=== PATIENT | female | born 1990 | race Caucasian/White ===

== ENCOUNTER 2021-09-12 10:40 | Outpatient (CLI) | payer MEDICAID, SELFPAY | END 2021-09-12 23:59 | disposition short-term general hospital (02) | PROVIDERS: Referring Provider Physician Assistant; Visit Provider Physician Assistant | DX: Z11.52 Encounter for screening for COVID-19 (principal) | CPT/HCPCS: 87635; U0003; U0005 ==

== ENCOUNTER 2021-12-11 20:02 | Emergency (ER) | payer MEDICAID, SELFPAY ==
[2021-12-11 20:03] VITALS: BP 142/86; PULSE 117; RESP 14; TEMP 36.8; BMI 49.7
--- NOTE | 2021-12-11 21:09 | EKG12_ITS ---
Test Reason : CP Blood Pressure : / mmHG Vent. Rate : 096 BPM Atrial Rate : 096 BPM P-R Int : 154 ms QRS Dur : 080 ms QT Int : 368 ms P-R-T Axes : 038 069 048 degrees QTc Int : 464 ms Normal sinus rhythm Normal ECG Confirmed by CASSY HINTON, DALE ([id number]), deputy editor in chief RODNEY PIKE ([id number]) on 12/13/2021 12:52:13 PM Referred By: PL Confirmed By:DALE MADERA MD
--- NOTE | 2021-12-11 21:13 | EDS_ITS ---
HPI History of Present Illness Chief Complaint: Chest Pain Detail of Chief Complaint: Fever, cough, congestion Informant: patient Onset/Context/Timing Onset: Days (2 days) Context: Gradual Onset Current Severity: Moderate Maximum Severity: Moderate Narrative Narrative: Patient presents secondary to generalized body aches with fever up to 103 at home over the past 2 to 3 days. She has cough and sneezing with congestion. She is a hoarse voice. She reports bilateral rib pain and feeling short of breath. [facility] Medical History (Updated 12/11/21 @ 23:[address] Dee Raygoza MD) Bilateral kidney stones Medical History no medical history no medical history Home Medications fluoxetine 10 mg capsule 10 mg PO DAILY 11/06/21 [History Last Taken Unknown] Allergy/AdvReac Type Severity Reaction Status Date / Time No Known Allergies Allergy Verified 12/11/21 20:03 Surgical History History of kidney surgery Social History Smoking Status: Never smoker ROS ROS ED Constitutional Constitutional ED: Reports fever(s); Denies chills Eyes Eyes: Denies change in vision ENT ENT ED: Reports rhinorrhea and sore throat Cardiovascular Cardiovascular: Reports chest pain Respiratory/Chest Respiratory/Chest: Reports cough and dyspnea; Denies sputum Gastrointestinal Gastrointestinal: Reports nausea and vomiting; Denies abdominal pain or diarrhea Genitourinary Genitourinary ED: Denies dysuria Musculoskeletal Musculoskeletal: Reports myalgias; Denies back pain Integumentary Denies rash Neurologic Neurologic: Denies headache(s) Allergic/Immunologic Allergic/Immunologic ED: Denies urticaria EXAM Physical Exam Const Vital Signs: 12/11/21 20:03 12/11/21 23:13 Temperature 98.2 F Temperature Source Temporal Pulse Rate 117 H 79 Respiratory Rate 14 16 Blood Pressure 142/86 H Blood Pressure Mean 104 Pulse Ox 96 Oxygen Delivery Method Room Air Positive well nourished and well developed General Appearance ED: well developed HEENT HEENT Narrative: Mild erythema left TM. Posterior pharynx exam unremarkable. Eyes PERRL and EOMs intact bilaterally Neck supple Chest Wall inspection of chest normal and palpation of chest normal Resp normal respiratory effort and clear to auscultation bilaterally Cardio regular rate and regular rhythm GI normal to inspection, nondistended, normoactive bowel sounds and non-tender Palpation: soft Extremity normal to inspection Neuro oriented x3 Sensorium / Orientation: alert Psych mental status grossly normal Skin no rashes or lesions noted MDM MDM MDM Narrative Medical decision making narrative: Patient given IV fluids and Toradol. Lab work, chest x-ray, EKG obtained. Swabs for strep, COVID, influenza obtained. Lab Data Attestation: I reviewed the patient's lab results. Labs: Laboratory Results - last 24 hr 12/11/21 12/11/21 12/11/21 21:30 21:30 21:30 WBC 6.1 RBC 4.85 Hgb 14.2 Hct 43.0 MCV 88.7 MCH 29.3 MCHC 33.0 RDW Std Deviation 42.0 RDW Coeff of Otis 12.9 Plt Count 267 MPV 9.7 Immature Gran % (Auto) 0.200 Neut % (Auto) 56.4 Lymph % (Auto) 27.7 Dubois % (Auto) 11.3 H Eos % (Auto) 3.9 Baso % (Auto) 0.5 Absolute Neuts (auto) 3.5 Absolute Lymphs (auto) 1.70 Nucleated RBC % 0 D-Dimer Quant (PE/DVT) 0.44 Sodium 139 Potassium 4.5 Chloride 107 Carbon Dioxide 27.0 Anion Gap 5 BUN 10 Creatinine 0.74 Estim Creat Clear Calc 87.12 Est GFR (MDRD) Af Amer 118 Est GFR (MDRD) Non-Af 97 BUN/Creatinine Ratio 13.5 Glucose 91 Calcium 8.7 Serum , Qual 12/11/21 21:30 WBC RBC Hgb Hct MCV MCH MCHC RDW Std Deviation RDW Coeff of Otis Plt Count MPV Immature Gran % (Auto) Neut % (Auto) Lymph % (Auto) Dub[place] % (Auto) Eos % (Auto) Baso % (Auto) Absolute Neuts (auto) Absolute Lymphs (auto) Nucleated RBC % D-Dimer Quant (PE/DVT) Sodium Potassium Chloride Carbon Dioxide Anion Gap BUN Creatinine Estim Creat Clear Calc Est GFR (MDRD) Af Amer Est GFR (MDRD) Non-Af BUN/Creatinine Ratio Glucose Calcium Serum , Qual NEGATIVE Radiography Chest X-Ray - ED: 1 View, Read by ED Physician and No Infiltrates Diagnostic Testing: Clinical Impression(s) from Imaging Studies Chest X-Ray 12/11/21 21:16 IMPRESSION: No acute radiographic abnormalities. Electronically Signed: Frederick Stern MD at 21:29 EDT , EKG Initial EKG: Attestation: I personally reviewed and interpreted this EKG as follows: Interpretation: Sinus Rhythm (Sinus at 96 with no acute ischemia.) Treatment and Re-Evaluation Narrative: Repeat evaluation patient does feel improved. EKG reveals no ischemia. Lab work unremarkable including a negative D-dimer. Chest x-ray reveals no infiltrate. Rapid strep and Covid are negative. Patient is positive for influenza A. Test results discussed with her. She wishes to just continue with supportive care. Return instructions are provided. Discharge Plan Triage Chief Complaint: Chest Pain ED Provider: Dee Raygoza Dx/Rx/DC Orders Clinical Impression: Influenza A Instructions: ED Influenza (Adult) Prescriptions: No Action fluoxetine [Prozac] 10 mg capsule 10 mg PO DAILY RF: 0 Primary Care Provider: Annelise Angeles Referrals: Annelise Angeles [Primary Care Provider] - 1-2 Weeks Disposition Disposition: Home, Self Care
--- NOTE | 2021-12-11 21:16 | RAD_ITS ---
INDICATION: cough EXAMINATION/TECHNIQUE: X-RAY - XR Chest 1 View COMPARISON: None. FINDINGS: The lungs are clear. The cardiomediastinal silhouette is unremarkable. No pleural effusion or pneumothorax. No acute osseous abnormalities. RAD/Chest 1 View (Portable) IMPRESSION: No acute radiographic abnormalities. Electronically Signed: Frederick tSern MD at 21:29 EDT ,
[2021-12-11] MEDS: 0.9% Normal Saline 1,000 ML 1000 ML IV (21:28)
[2021-12-11] MEDS: Ketorolac 30 MG/ML Syringe IV (21:28)
[2021-12-11 21:45] LABS: Absolute Neutrophil Count 3.5 X10^3/uL (2.0-7.7); Basophil# 0.03 X10^3/uL; Basophil% 0.5 % (0-1); Eosinophil# 0.24 X10^3/uL; Eosinophils% 3.9 % (0-5); Hemoglobin 14.2 g/dL (12.0-15.0); Lymphocyte % 27.7 % (19-41); Mean Corpuscular Hgb 29.3 pg (27.0-32.0); Mean Corpuscular Volume 88.7 fL (81-99); Mean Platelet Vol. 9.7 fl (6.2-12.0); Monocyte# 0.69 X10^3/uL; Monocyte% 11.3 % (0-10); NRBC Flagged by Analyzer 0 % (0-5); Neutrophil # 3.46 X10^3/uL (2.7-7.7); Neutrophil % 56.4 % (47-70); Platelet Count 267 K/mm3 (150-450); RBC Distribution Width CV 12.9 % (11.6-14.6); Red Blood Count 4.85 M/mm3 (4.2-5.4); White Blood Count 6.1 K/mm3 (4.4-11.0)
[2021-12-11 21:53] LABS: Internal QC Validated? YES +Cl - CLEAR BKGD; Pregnancy, Serum, hCG Quali. NEGATIVE Negative
[2021-12-11 21:57] LABS: D-Dimer Quantitative (DVT/PE) 0.44 FEU/ug/m (0.27-0.49)
[2021-12-11 22:11] LABS: Anion Gap 5 (5-15); BUN 10 mg/dL (7-18); BUN/Creat Ratio 13.5 RATIO (10-20); Calcium,Total 8.7 mg/dL (8.5-10.1); Chloride 107 mmol/L (98-107); Creatinine, Serum 0.74 mg/dL (0.55-1.02); EST Glomerular Filtration Rate 97 mL/min (>60); Est Glom Filt Rate - Afr Amer 118 mL/min (>60); Estimated Creatinine Clearance 87.12 ml/min; Glucose 91 mg/dL (74-106); Potassium 4.5 mmol/L (3.5-5.1); Sodium Level 139 mmol/L (136-145)
[2021-12-11 23:13] VITALS: PULSE 79; RESP 16; O2SAT 96
[2021-12-11 23:30] VITALS: PULSE 78; RESP 18; O2SAT 96
== END 2021-12-11 23:34 | disposition home or self-care (01) ==
PROVIDERS: Emergency Provider Emergency Medicine; PCP Family Medicine; Visit Provider Emergency Medicine
DX: J10.1 Influenza due to other identified influenza virus with other respiratory manifestations (principal)
CPT/HCPCS: 71045; 80048; 84703; 85025; 85379; 87428; 87880; 93005; 96361; 96374; 99284; J7030

== ENCOUNTER 2024-02-13 19:57 | Emergency (ER) | payer MEDICAID, SELFPAY ==
[2024-02-13 19:57] VITALS: BP 164/105; PULSE 111; RESP 18; TEMP 36.6; O2SAT 100; BMI 50.9
--- NOTE | 2024-02-13 20:17 | US_ITS ---
STUDY: FIRST TRIMESTER OBSTETRICAL ULTRASOUND REASON FOR EXAM: Female, 33 years old pain LMP: Unknown TECHNIQUE: Transabdominal TECHNICAL QUALITY: Adequate. PRIOR ULTRASOUND: None. FINDINGS: There is visualization of a single gestational sac in a normal intrauterine position. The mean sac diameter (MSD) measures 6.8 cm, indicating an estimated gestational age (EGA) of 13 weeks, 2 days. The gestational sac shape is within normal limits. There is a visualized yolk sac. The yolk sac measures 0.5 cm. The placenta is non-visualized. There is visualization of a live embryo. The crown-rump length (CRL) measures 6.8 cm, indicating an estimated gestational age (EGA) of 13 weeks, 0 days. There is demonstrated cardiac activity with a heart rate of 156 bpm. The estimated gestation age (EGA) by LMP is 13 weeks, 1 days. The estimated date of delivery (BAUTISTA) by LMP is August 19, 2024. The estimated gestation age (EGA) by US is 13 weeks, 1 days. The estimated date of delivery (BAUTISTA) by US is August 19, 2024. There is no fluid in the cul de sac. US/Init OB < 14Wks US IMPRESSION: 13 week 1 day intrauterine Electronically Signed: Brijesh Marmolejo MD at 21:58 EDT ,
--- NOTE | 2024-02-13 20:19 | ED.VIS.FEGU ---
HPI HPI - Female History of Present Illness Chief Complaint: Informant: patient Pain Pain: Positive for Pelvic Pain Onset: Today Narrative Narrative: Patient presents secondary to abdominal pain. She is currently 13 weeks with her fourth . She had 2 successful pregnancies and 1 blighted ovum previously. She states she was woken from sleep around 6 AM this morning with abdominal cramping and pain. It is progressed throughout the day. She has had nausea and dry heaves. She also complains of a headache that was not relieved with Tylenol. She denies urinary symptoms. She denies any vaginal bleeding. PFSH PFS Medical History Acute sinusitis, unspecified Bilateral kidney stones Home Medications ?Medication ?Instructions ?Recorded ?Last Taken ?Type fluoxetine 10 mg capsule (Prozac) 10 mg PO DAILY 11/06/21 Unknown History cephalexin 500 mg capsule 500 mg PO Q12 #14 CAPSULES 02/13/24 Unknown Rx ondansetron 4 mg disintegrating 4 mg PO Q8H PRN PRN Nausea #10 tabs 02/13/24 Unknown Rx tablet oxycodone 5 mg tablet 5 mg PO Q6H PRN pain 3 days #12 02/13/24 Unknown Rx tabs Allergy/AdvReac Type Severity Reaction Status Date / Time No Known Allergies Allergy Verified 02/13/24 19:59 Surgical History History of kidney surgery Social History Smoking Status: Never smoker ROS ROS ED Constitutional Constitutional ED: Denies chills or fever(s) Eyes Eyes: Denies discharge from eye(s) ENT ENT ED: Denies discharge from eye(s), rhinorrhea or sore throat Cardiovascular Cardiovascular: Denies chest pain Respiratory/Chest Respiratory/Chest: Denies cough or dyspnea Gastrointestinal Gastrointestinal: Reports abdominal pain, nausea and vomiting; Denies diarrhea Genitourinary Genitourinary ED: Denies dysuria or urinary frequency Musculoskeletal Musculoskeletal: Denies back pain or extremity pain Integumentary Denies Abrasions or rash Neurologic Neurologic: Denies headache(s) or weakness Psychiatric Psychiatric: Denies anxiety or depression Allergic/Immunologic Allergic/Immunologic ED: Denies lip swelling or urticaria EXAM Physical Exam Const Vital Signs: 02/13/24 19:57 02/13/24 21:57 Temperature 98 F 97.3 F L Temperature Source Temporal Temporal Pulse Rate 111 H 78 Respiratory Rate 18 18 Blood Pressure 164/105 H 126/67 H Blood Pressure Mean 124 86 Pulse Ox 100 99 Oxygen Delivery Method Room Air Room Air Positive well nourished and well developed General Appearance ED: well developed HEENT Reports moist mucous membranes Eyes EOMs intact bilaterally Chest Wall inspection of chest normal and palpation of chest normal Resp normal respiratory effort and clear to auscultation bilaterally Cardio regular rate and regular rhythm GI soft to palpation GI Narrative: Mild diffuse lower abdominal tenderness. No guarding or rebound. Extremity normal to inspection Neuro oriented x3 and no sensory deficits noted Motor Exam: strength 5/5 throughout Psych mental status grossly normal Skin no rashes or lesions noted MDM MDM MDM Narrative Medical decision making narrative: IV line established. Patient given IV fluids along with Reglan and Benadryl. Labwork obtained to evaluate for leukocytosis, anemia, and electrolyte derangement. Urinalysis obtained to evaluate for infection/hematuria. Pelvic ultrasound obtained to evaluate fetus. History & Record Review Discussion w/independent historian: Patient Lab Data Attestation: I reviewed the patient's lab results. Labs: Laboratory Results - last 24 hr 02/13/24 02/13/24 20:32 20:55 WBC 12.2 H RBC 4.62 Hgb 13.7 Hct 40.8 MCV 88.3 MCH 29.7 MCHC 33.6 RDW Std Deviation 41.3 RDW Coeff of Otis 12.9 Plt Count 272 MPV 9.5 Immature Gran % (Auto) 0.300 Neut % (Auto) 59.4 Lymph % (Auto) 30.9 [place] % (Auto) 6.2 Eos % (Auto) 2.9 Baso % (Auto) 0.3 Absolute Neuts (auto) 7.3 Absolute Lymphs (auto) 3.78 Nucleated RBC % 0 Sodium 137 Potassium 3.4 L Chloride 105 Carbon Dioxide 24.0 Anion Gap 8 BUN 9 Creatinine 0.57 Estim Creat Clear Calc 178.66 Est GFR (MDRD) Af Amer 156 Est GFR (MDRD) Non-Af 129 BUN/Creatinine Ratio 15.7 Glucose 100 Calcium 9.3 Total Bilirubin 0.30 Direct Bilirubin 0.09 AST 12 L ALT 12 L Alkaline Phosphatase 61 Total Protein 6.9 Albumin 2.8 L Globulin 4.1 Urine Color Yellow Urine Clarity Cloudy Urine pH 7.0 Ur Specific [place] 1.010 Urine Protein 15 H Urine Glucose (UA) Normal Urine Ketones Negative Urine Occult Blood 250 H Urine Nitrite Negative Urine Bilirubin Negative Urine Urobilinogen Normal Ur Leukocyte Esterase 100 H Urine RBC > 100 SEEN Urine WBC 0-5 SEEN Ur Squamous Epith Cells 0-5 SEEN Urine Bacteria 1+ Urine Mucus 1+ Radiography Diagnostic Testing: Clinical Impression(s) from Imaging Studies Obstetrics Ultrasound 02/13/24 20:17 IMPRESSION: 13 week 1 day intrauterine Electronically Signed: Brijesh Marmolejo MD at 21:58 EDT , Treatment and Re-Evaluation Narrative: CBC has a white count of 12.2 with normal differential. Hemoglobin is 13.7. Chemistry studies significant only for slightly low potassium at 3.4. LFTs are normal. Urinalysis reveals greater than 100 red cells with 1+ bacteria. Pelvic ultrasound reveals 13-week 1 day intrauterine . Heart rate is noted at 156. On repeat evaluation patient does report some improvement in her headache. Blood pressures improved to 126/67. She does have a history of kidney stones. She states in the past she is always had to have surgery for them and is always had a lot of back pain. With the degree of red blood cells in her urine I suspect she is likely passing a small kidney stone and has pain in the anterior groin area. I will write her prescription for oxycodone for pain. She can use Tylenol on a regular basis with oxycodone for breakthrough pain. I will also write her for some Zofran as well as Keflex given the bacteria in her urine. Patient is comfortable to plan. Return instructions were provided. Discharge Plan Triage Chief Complaint: ED Provider: Dee Raygoza Dx/Rx/DC Orders Clinical Impression: Kidney stone, Bacteria in urine Instructions: ED Cystitis Female Adult, ED Kidney Stone with Pain Prescriptions: New oxycodone 5 mg tablet 5 mg PO Q6H PRN (Reason: pain) 3 Days Qty: 12 0RF ondansetron 4 mg tablet,disintegrating 4 mg PO Q8H PRN PRN (Reason: Nausea) Qty: 10 0RF cephalexin 500 mg capsule 500 mg PO Q12 Qty: 14 0RF No Action fluoxetine [Prozac] 10 mg capsule 10 mg PO DAILY Primary Care Provider: Annelise Angeles Referrals: Naye Olivier MD [Med Staff - Active Staff] - 3-5 Days if not improving Valerie Gale MD [Med Staff - Active Staff] - 1 Week Annelise Angeles [Primary Care Provider] - Print Language: Telugu Disposition Disposition: Home, Self Care
[2024-02-13] MEDS: DiphenhydrAMINE 50 MG/ML Syringe 12.5 MG IV (20:47)
[2024-02-13] MEDS: Metoclopramide 10 MG/2 ML Vial IV (20:47)
[2024-02-13] MEDS: 0.9% Normal Saline (500mL Bag) 500 ML 1000 ML IV (20:48)
[2024-02-13 20:50] LABS: Absolute Lymphocyte Count 3.78 X10^3/uL (0.83-4.51); Absolute Neutrophil Count 7.3 X10^3/uL (2.0-7.7); Basophil# 0.04 X10^3/uL; Basophil% 0.3 % (0-1); Eosinophil# 0.35 X10^3/uL; Eosinophils% 2.9 % (0-5); Hematocrit 40.8 % (37-47); Hemoglobin 13.7 g/dL (12.0-15.0); Lymphocyte # 3.78 X10^3/ul (0.83-4.51); Lymphocyte % 30.9 % (19-41); Mean Corp Hgb Conc 33.6 g/dL (32-36); Mean Corpuscular Hgb 29.7 pg (27.0-32.0); Mean Corpuscular Volume 88.3 fL (81-99); Mean Platelet Vol. 9.5 fl (6.2-12.0); Monocyte# 0.76 X10^3/uL; Monocyte% 6.2 % (0-10); NRBC Flagged by Analyzer 0 % (0-5); Neutrophil # 7.26 X10^3/uL (2.7-7.7); Neutrophil % 59.4 % (47-70); Platelet Count 272 K/mm3 (150-450); RBC Distribution Width CV 12.9 % (11.6-14.6); RBC Distribution Width SD 41.3 fl (35.1-43.9); Red Blood Count 4.62 M/mm3 (4.2-5.4); White Blood Count 12.2 K/mm3 (4.4-11.0)
[2024-02-13 21:02] LABS: AST(SGOT) 12 U/L (15-37); Alanine Aminotransfer ALT/SGPT 12 U/L (13-56); Albumin, Serum 2.8 g/dL (3.2-5.0); Alkaline Phosphatase 61 U/L (45-117); Anion Gap 8 (5-15); BUN 9 mg/dL (7-18); BUN/Creat Ratio 15.7 RATIO (10-20); Bilirubin, Direct 0.09 mg/dL (0.00-0.30); Calcium,Total 9.3 mg/dL (8.5-10.1); Chloride 105 mmol/L (98-107); Creatinine, Serum 0.57 mg/dL (0.55-1.02); EST Glomerular Filtration Rate 129 mL/min (>60); Est Glom Filt Rate - Afr Amer 156 mL/min (>60); Estimated Creatinine Clearance 178.66 ml/min; Globulin 4.1 g/dL (2.2-4.2); Glucose 100 mg/dL (74-106); Potassium 3.4 mmol/L (3.5-5.1); Protein, Total 6.9 g/dL (6.4-8.2); Sodium Level 137 mmol/L (136-145)
[2024-02-13 21:14] LABS: Color, Urine Yellow (Yellow); Glucose, Dipstick Normal (Normal); Ketone-Dipstick Negative (Negative); Leukocyte Esterase-Dipstick 100 /ul (Negative); Nitrite-Dipstick Negative (Negative); Occult Blood-Urine 250 /ul (Negative); Protein-Dipstick 15 mg/dl (Negative); Urine Bilirubin Dipstick Negative (Negative); Urine Clarity Cloudy (Clear); Urine Urobilinogen Normal (Normal)
[2024-02-13 21:53] LABS: Mucous, Urine 1+ /hpf (<or=2+); Red Blood Cells-Urine > 100 SEEN /hpf (0-5)
[2024-02-13 21:54] LABS: Bacteria 1+ /hpf (None Seen); Squamous Epithelial Cells - UA 0-5 SEEN /hpf (5-10); White Blood Cells 0-5 SEEN /hpf (0-5)
[2024-02-13 21:57] VITALS: BP 126/67; PULSE 78; RESP 18; TEMP 36.3; O2SAT 99
[2024-02-13 23:03] VITALS: BP 134/68; PULSE 78; RESP 16; TEMP 36.7; O2SAT 98
== END 2024-02-13 23:35 | disposition home or self-care (01) ==
PROVIDERS: Emergency Provider Emergency Medicine; PCP Family Medicine; Visit Provider Emergency Medicine
DX: O99.891 Other specified diseases and conditions complicating pregnancy (principal); N20.0 Calculus of kidney; Z3A.13 13 weeks gestation of pregnancy
CPT/HCPCS: 76801; 80048; 80076; 81001; 85025; 96361; 96374; 96375; 99284; J7030; A4216

== ENCOUNTER 2024-07-28 12:15 | Inpatient (IN) | payer MEDICAID, SELFPAY ==
[2024-07-28] VITALS (40 sets, daily range): BP systolic 111–167; BP diastolic 53–83; PULSE 81–133; RESP 15–17; TEMP 36.6–37.1; O2SAT 94–100; BMI 53.2
[2024-07-28] MEDS: Insulin NPH Human 100 UNITS/ML PEN 10 UNITS SC (10:57)
[2024-07-28 11:00] LABS: Hematocrit 36.9 % (37-47); Mean Corp Hgb Conc 32.5 g/dL (32-36); Mean Corpuscular Hgb 28.6 pg (27.0-32.0); Mean Corpuscular Volume 88.1 fL (81-99); Mean Platelet Vol. 10.1 fl (6.2-12.0); Platelet Count 238 K/mm3 (150-450); RBC Distribution Width CV 13.6 % (11.6-14.6); RBC Distribution Width SD 43.5 fl (35.1-43.9); Red Blood Count 4.19 M/mm3 (4.2-5.4); White Blood Count 12.8 K/mm3 (4.4-11.0)
[2024-07-28 11:22] LABS: Bedside Glucose 100 mg/dL (74-106)
[2024-07-28 11:39] LABS: Protein, Urine (Random) 16.5 mg/dL (<11.9); Protein:Creat Ratio 627 mg/g CRE (0-200)
[2024-07-28 12:01] LABS: AST(SGOT) 10 U/L (15-37); Alanine Aminotransfer ALT/SGPT 10 U/L (13-56); Creatinine, Serum 0.62 mg/dL (0.55-1.02); EST Glomerular Filtration Rate 118 mL/min (>60); Est Glom Filt Rate - Afr Amer 142 mL/min (>60); Uric Acid 4.1 mg/dL (2.6-6.0)
[2024-07-28] MEDS: Lactated Ringers 1,000 ML 50 ML IV ×2 (13:25→21:05)
[2024-07-28] MEDS: Oxytocin 15 Units/NS 250ml 15 UNITS/250 ML IV.SOLN 2 UNITS IV (13:39)
[2024-07-28 14:36] LABS: Syphilis Antibodies Non-reactive
[2024-07-28 15:20] LABS: Bedside Glucose 86 mg/dL (74-106)
[2024-07-28 16:43] LABS: Bedside Glucose 77 mg/dL (74-106)
[2024-07-28] MEDS: Lactated Ringers 1,000 ML 999 ML IV (18:42)
[2024-07-28] MEDS: 0.9% Saline Lock 10 ML Syringe IV (20:13)
[2024-07-28] MEDS: fentaNYL 100 MCG/2 ML Ampul IV (20:13)
[2024-07-28 20:50] LABS: Bedside Glucose 82 mg/dL (74-106)
[2024-07-28] MEDS: LACTATED RINGERS 500 ML 999 ML IV (21:07)
[2024-07-28] MEDS: fentaNYL-bupivacaine (epidural) 100 ML BAG EPIDURAL (21:09)
[2024-07-28] MEDS: Ondansetron 4 MG/2 ML Vial IV (21:43)
[2024-07-28] MEDS: Amnioinfusion- 0.9% NS 1,000 ML IV.SOLN. 1000 ML INTRA-UTER (21:43)
[2024-07-28 22:05] LABS: Bedside Glucose 96 mg/dL (74-106)
[2024-07-28 23:07] LABS: Bedside Glucose 101 mg/dL (74-106)
[2024-07-29] VITALS (32 sets, daily range): BP systolic 109–128; BP diastolic 56–69; PULSE 70–107; RESP 16–18; TEMP 36.2–36.6; O2SAT 95–99
[2024-07-29] MEDS: Oxytocin 15 Units/NS 250ml 15 UNITS/250 ML IV.SOLN 83 UNITS IV (00:04)
[2024-07-29 01:04] LABS: Bedside Glucose 105 mg/dL (74-106)
[2024-07-29 01:32] LABS: Pathology Specimen OB SEE PATHOLOGY REPORT
[2024-07-29 07:00] LABS: Bedside Glucose 96 mg/dL (74-106)
[2024-07-29] MEDS: Ibuprofen 600 MG Tablet PO ×2 (07:58→17:27)
[2024-07-29] MEDS: Senna/Docusate Sodium 1 Tablet PO (07:59)
[2024-07-29] MEDS: Acetaminophen 500 MG Tablet 1000 MG PO (12:13)
[2024-07-29] MEDS: FLUoxetine 10 MG Capsule PO (12:18)
[2024-07-30 00:21] VITALS: BP 127/65; PULSE 75; RESP 18
[2024-07-30 03:36] VITALS: BP 125/79; PULSE 75; RESP 16; TEMP 36.3; O2SAT 98
[2024-07-30] MEDS: Acetaminophen 500 MG Tablet 1000 MG PO ×2 (03:41→10:03)
[2024-07-30 07:49] VITALS: BP 131/53; PULSE 75; RESP 16; TEMP 36.4; O2SAT 96
[2024-07-30] MEDS: FLUoxetine 10 MG Capsule PO (10:04)
[2024-07-30] MEDS: Senna/Docusate Sodium 1 Tablet PO (10:04)
== END 2024-07-30 11:45 | disposition home or self-care (01) | DRG 560 ==
LOC: WPOUT 12:19 → WP 12:19
PROVIDERS: Admitting Provider Obstetrics & Gynecology; PCP Family Medicine; Referring Provider Obstetrics & Gynecology; Visit Provider Obstetrics & Gynecology
DX: O14.04 Mild to moderate pre-eclampsia, complicating childbirth (principal); Z37.0 Single live birth; O60.14X0 Preterm labor third trimester with preterm delivery third trimester, not applicable or unspecified; O24.424 Gestational diabetes mellitus in childbirth, insulin controlled; O26.03 Excessive weight gain in pregnancy, third trimester; O40.3XX0 Polyhydramnios, third trimester, not applicable or unspecified; O69.81X0 Labor and delivery complicated by cord around neck, without compression, not applicable or unspecified; O70.1 Second degree perineal laceration during delivery; Z3A.36 36 weeks gestation of pregnancy
CPT/HCPCS: 59025; 59050; 82565; 82570; 82962; 84156; 84450; 84460; 84550; 85027; 86780; 86850; 86900; 86901; 88307; 99221; J7030; J7120; A4216; G0378; J2405

== ENCOUNTER 2024-10-03 00:34 | Emergency (ER) | payer MEDICAID, SELFPAY ==
[2024-10-03 00:35] VITALS: BP 130/72; PULSE 85; RESP 18; TEMP 36.8; O2SAT 98; BMI 50.8
--- NOTE | 2024-10-03 00:46 | EX.ED.DYSGE1 ---
HPI History of Present Illness Chief Complaint: Flank Pain Informant: patient Narrative Narrative: Nontraumatic right flank pain since yesterday increased intensity pain would radiate down her right side. Nausea without vomiting reports nonbloody diarrhea. No fever chills or sweats. Denies urinary symptoms of frequency, dysuria or hematuria. History of kidney stone x 2 in the past requiring stents. She does not follow urologist currently. Had a baby in July, has not started her menstrual period. No allergies. No history of stomach ulcers or kidney injury. Prior similar symptoms: Yes PFSH PFSH Medical History Depression Anxiety Pre-eclampsia Gestational diabetes Acute sinusitis, unspecified Bilateral kidney stones Home Medications ?Medication ?Instructions ?Recorded ?Last Taken ?Type fluoxetine 10 mg capsule (Prozac) 10 mg PO DAILY 11/06/21 Unknown History famotidine 40 mg tablet 40 mg PO DAILY 07/28/24 Unknown History vitamins no.42-folic acid tab PO 07/28/24 Unknown History 1.4 mg chew tablet,IR - DR,biphase cefdinir 300 mg capsule 300 mg PO Q12H #14 caps 10/03/24 Unknown Rx ibuprofen 600 mg tablet 600 mg PO Q6H PRN PRN pain #20 10/03/24 Unknown Rx TABLETS levonorgestrel 0.1 mg-ethinyl 1 tab PO DAILY 10/03/24 Unknown History estradiol 0.02 mg (21)/iron (7) tablet (Moni) ondansetron 4 mg disintegrating 4 mg PO Q8H PRN PRN Nausea #10 tabs 10/03/24 Unknown Rx tablet oxycodone-acetaminophen 5 mg-325 1 tab PO Q6H PRN PRN Pain 3 days 10/03/24 Unknown Rx mg tablet #12 TABLETS tamsulosin 0.4 mg capsule 0.4 mg PO DAILY #7 CAPSULES 10/03/24 Unknown Rx Allergy/AdvReac Type Severity Reaction Status Date / Time No Known Allergies Allergy Verified 10/03/24 00:38 Surgical History History of kidney surgery Social History Smoking Status: Never smoker ROS ROS ED Constitutional Constitutional ED: Denies chills, fever(s) or sweats ENT ENT ED: Denies sore throat Cardiovascular Cardiovascular: Denies chest pain, leg edema, palpitations or racing heartbeat Respiratory/Chest Respiratory/Chest: Denies cough, dyspnea or dyspnea on exertion Gastrointestinal Gastrointestinal: Reports diarrhea and nausea; Denies abdominal pain or vomiting Genitourinary Genitourinary ED: Denies dysuria, hematuria or urinary frequency Musculoskeletal Musculoskeletal: Reports back pain; Denies extremity pain or neck pain Integumentary Denies rash or wounds Neurologic Neurologic: Denies headache(s), paresthesias or weakness EXAM Physical Exam Const Vital Signs: 10/03/24 00:35 10/03/24 02:35 10/03/24 03:18 Temperature 98.2 F 98.0 F Temperature Source Oral Pulse Rate 85 73 72 Respiratory Rate 18 19 H 18 Blood Pressure 130/72 H 132/66 H 130/70 H Blood Pressure Mean 91 88 90 Pulse Ox 98 99 97 Oxygen Delivery Method Room Air Room Air Positive well nourished and well developed General Appearance ED: well developed and NAD HEENT Reports moist mucous membranes normocephalic and atraumatic Eyes General Eye ED: Yes normal appearance of both eyes Neck full ROM Chest Wall Chest: Negative for tenderness Resp normal respiratory effort and normal air movement Effort and Inspection: symmetric chest movement; Negative for respiratory distress Cardio regular rate, regular rhythm and no murmurs Peripheral Pulses: pulses 2+ throughout GI normal to inspection, nondistended, normoactive bowel sounds and non-tender Palpation: Negative for guarding or rebound tenderness present Back/Spine Back/Spine Narrative: Mild right CVA tenderness there is no rash. Extremity normal to inspection General Extremety ED: Negative for edema or tenderness General Extremity: Negative for edema Neuro oriented x3 and no sensory deficits noted Sensorium / Orientation: awake and alert Skin no rashes or lesions noted and no wounds MDM MDM MDM Narrative Medical decision making narrative: Interventions / MDM: Differential diagnosis: Obstructive kidney stone, UTI Diagnosis considered but do not suspect: Appendicitis however CT negative. My EKG interpretation: N/A Imaging independently reviewed and interpreted by myself: CT abdomen pelvis: 10 x 10 mm obstructing stone distal third of right ureter with hydronephrosis. Mild right-sided perinephric stranding. Normal appendix. External documents reviewed: N/A Test considered but not ordered:N/A ED course: Vital stable nontoxic. right flank pain radiating symptoms. history of kidney stones. IV established for labs urine ordered. IV fluids Zofran and Toradol. CT flank ordered for further evaluation. Pain but controlled down to 5 or 6 per patient. She declines any further medications. White count 1.9 creatinine 0.83. Urine with 500 leukocytes 10-25 to BCs 1+ bacteria. Sent for urine culture. She started on Rocephin antibiotics. 0240: I spoke with urologist Dr. Kirkland, patient currently nontoxic pain is controlled. Discussed that she required stenting with her stones in the past most recent was 6 years ago in [place]. With symptom control vital stable he will follow-up as an outpatient in the office for intervention. I discussed strict return precautions with the patient. Will start on Flomax also. All questions were answered. Re-evaluation: stable Disposition discussed with patient/family/significant other: Patient Case discussed with consulting clinician: Urology This note was generated with [employer] dictation software. It may contain incorrect words, spelling, and punctuation that were not noted in checking the note before signing. Lab Data Attestation: I reviewed the patient's lab results. Labs: Laboratory Results - last 24 hr 10/03/24 10/03/24 00:48 01:10 WBC 11.9 H RBC 4.61 Hgb 12.9 Hct 40.2 MCV 87.2 MCH 28.0 MCHC 32.1 RDW Std Deviation 42.0 RDW Coeff of [place]is 13.3 Plt Count 301 MPV 9.5 Immature Gran % (Auto) 0.200 Neut % (Auto) 48.1 Lymph % (Auto) 39.9 George % (Auto) 8.4 Eos % (Auto) 3.0 Baso % (Auto) 0.4 Absolute Neuts (auto) 5.7 Absolute Lymphs (auto) 4.73 H Nucleated RBC % 0 Sodium 139 Potassium 4.1 Chloride 106 Carbon Dioxide 26.0 Anion Gap 7 BUN 16 Creatinine 0.83 Estim Creat Clear Calc 122.51 Est GFR (MDRD) Af Amer 101 Est GFR (MDRD) Non-Af 84 BUN/Creatinine Ratio 19.3 Glucose 106 Calcium 8.9 Urine Color Yellow Urine Clarity Cloudy Urine pH 7.0 Ur Specific [place] 1.015 Urine Protein 30 H Urine Glucose (UA) Normal Urine Ketones Negative Urine Occult Blood 250 H Urine Nitrite Negative Urine Bilirubin Negative Urine Urobilinogen 1 H Ur Leukocyte Esterase 500 H Urine RBC 0-5 SEEN Urine WBC 10-25 SEEN Ur Squamous Epith Cells 5-10 SEEN Ur Transition Epith Cell 0-5 SEEN Urine Bacteria 1+ Urine Mucus 0 SEEN Urine Test Negative Radiography Diagnostic Testing: Clinical Impression(s) from Imaging Studies Abdomen/Pelvis CT 10/03/24 01:45 IMPRESSION: 1. Obstructing stone in the distal 1/3 of the right ureter measuring 10 mm resulting in moderate right-sided hydroureter and severe right-sided hydronephrosis. 2. Punctate nonobstructing bilateral renal stones. One or more dose reduction techniques were used (e.g., Automated exposure control, adjustment of the mA and/or kV according to patient size, use of iterative reconstruction technique). Reading Location: [facility] Discharge Plan Triage Chief Complaint: Flank Pain Other Complaint: Nausea/Vomiting/Diarrhea ED Provider: Jeferson Champagne Dx/Rx/DC Orders Clinical Impression: Urolithiasis, Renal colic on right side, UTI (urinary tract infection) Instructions: Urinary Tract Infections in Women, ED Kidney Stone with Pain Prescriptions: New oxycodone-acetaminophen 5-325 mg tablet 1 tab PO Q6H PRN PRN (Reason: Pain) 3 Days Qty: 12 0RF ibuprofen 600 mg tablet 600 mg PO Q6H PRN PRN (Reason: pain) Qty: 20 0RF ondansetron 4 mg tablet,disintegrating 4 mg PO Q8H PRN PRN (Reason: Nausea) Qty: 10 0RF tamsulosin 0.4 mg capsule 0.4 mg PO DAILY Qty: 7 0RF cefdinir 300 mg capsule 300 mg PO Q12H Qty: 14 0RF No Action fluoxetine [Prozac] 10 mg capsule 10 mg PO DAILY comb no.42-folic acid 1.4 mg tablet,chew,IR - DR,biphase PO famotidine 40 mg tablet 40 mg PO DAILY levonorgest-eth.estradiol-iron [[place]] 0.1 mg-0.02 mg (21)/iron (7) tablet 1 tab PO DAILY Primary Care Provider: MARYELLEN ROSARIO Referrals: MARYELLEN ROSARIO DO [Primary Care Provider] - Isael,Chip, MD [Med Staff - Active Staff] - 1 Day Activity Restrictions/Additional Instructions: You have a 10 mm stone distal third of your right ureteral. White count 11.9 normal renal function at 0.83. Urine with signs of infection. Take antibiotic prescribed. Take Flomax prescribed. Use nausea and pain medicines as needed. Call Dr. Kirkland's office tomorrow for an appointment. Your symptoms worsen not controlled medication. Develop any fevers, return to the ED for reevaluation. Print Language: Afghan Disposition Disposition: Home, Self Care Discharge Date/Time: 10/03/24 03:23
[2024-10-03 00:53] LABS: Absolute Lymphocyte Count 4.73 X10^3/uL (0.83-4.51); Absolute Neutrophil Count 5.7 X10^3/uL (2.0-7.7); Basophil# 0.05 X10^3/uL; Basophil% 0.4 % (0-1); Eosinophil# 0.35 X10^3/uL; Hematocrit 40.2 % (37-47); Hemoglobin 12.9 g/dL (12.0-15.0); Lymphocyte # 4.73 X10^3/ul (0.83-4.51); Lymphocyte % 39.9 % (19-41); Mean Corp Hgb Conc 32.1 g/dL (32-36); Mean Corpuscular Volume 87.2 fL (81-99); Mean Platelet Vol. 9.5 fl (6.2-12.0); Monocyte% 8.4 % (0-10); NRBC Flagged by Analyzer 0 % (0-5); Neutrophil # 5.71 X10^3/uL (2.7-7.7); Neutrophil % 48.1 % (47-70); Platelet Count 301 K/mm3 (150-450); RBC Distribution Width CV 13.3 % (11.6-14.6); Red Blood Count 4.61 M/mm3 (4.2-5.4); White Blood Count 11.9 K/mm3 (4.4-11.0)
[2024-10-03] MEDS: Ondansetron 4 MG/2 ML Vial IV (00:54)
[2024-10-03] MEDS: 0.9% Normal Saline (500mL Bag) 500 ML 999 ML IV (00:54)
[2024-10-03] MEDS: Ketorolac 15 MG/ML Vial IV (00:54)
[2024-10-03 01:06] LABS: Anion Gap 7 (5-15); BUN 16 mg/dL (7-18); BUN/Creat Ratio 19.3 RATIO (10-20); Calcium,Total 8.9 mg/dL (8.5-10.1); Chloride 106 mmol/L (98-107); Creatinine, Serum 0.83 mg/dL (0.55-1.02); EST Glomerular Filtration Rate 84 mL/min (>60); Est Glom Filt Rate - Afr Amer 101 mL/min (>60); Estimated Creatinine Clearance 122.51 ml/min; Glucose 106 mg/dL (74-106); Potassium 4.1 mmol/L (3.5-5.1); Sodium Level 139 mmol/L (136-145)
[2024-10-03 01:23] LABS: Mucous, Urine 0 SEEN /hpf (<or=2+)
[2024-10-03 01:29] LABS: Color, Urine Yellow (Yellow); Glucose, Dipstick Normal (Normal); Ketone-Dipstick Negative (Negative); Leukocyte Esterase-Dipstick 500 /ul (Negative); Nitrite-Dipstick Negative (Negative); Occult Blood-Urine 250 /ul (Negative); Protein-Dipstick 30 mg/dl (Negative); Specific Gravity, Urine 1.015 (1.002-1.030); Urine Bilirubin Dipstick Negative (Negative); Urine Clarity Cloudy (Clear); Urine Urobilinogen 1 mg/dl (Normal)
[2024-10-03 01:37] LABS: Bacteria 1+ /hpf (None Seen); Internal QC Validated? YES +Cl - CLEAR BKGD; Pregnancy, Urine Negative Negative; Red Blood Cells-Urine 0-5 SEEN /hpf (0-5); Squamous Epithelial Cells - UA 5-10 SEEN /hpf (5-10); Transitional Epithelial - Ur 0-5 SEEN /hpf (0-5); White Blood Cells 10-25 SEEN /hpf (0-5)
--- NOTE | 2024-10-03 01:45 | CT_ITS ---
PROCEDURE: ABDOMEN/PELVIS WITHOUT CONT REASON FOR EXAM: Right flank pain. Nausea, diarrhea. TECHNIQUE: Abdomen and pelvis CT without intravenous contrast. Sagittal and coronal 2D reformatted images were provided for better evaluation. COMPARISON: None. FINDINGS: Lung bases are clear. The nonenhanced liver, spleen, pancreas, biliary system, gallbladder, and adrenal glands are unremarkable within the limits of a noncontrast exam. Abdominal aorta demonstrates a normal caliber. There is a 10 x 10 x 7 mm obstructing stone in the distal 1/3 of the right ureter resulting in moderate right-sided hydroureter and severe right-sided hydronephrosis. There is mild right perinephric stranding. There are punctate nonobstructing bilateral renal stones. No left-sided hydronephrosis or left-sided hydroureter is present. No left ureteral stone is seen. Urinary bladder is underdistended. No colonic obstruction or pericolonic inflammatory changes are present. Appendix is unremarkable. Small bowel demonstrates a normal caliber. There is a tiny fat containing umbilical hernia. Uterus is present. No free air or free fluid is identified. Evaluation of the osseous structures demonstrates no acute findings. CT/Abdomen/Pelvis without Cont IMPRESSION: 1. Obstructing stone in the distal 1/3 of the right ureter measuring 10 mm resu lting in moderate right-sided hydroureter and severe right-sided hydronephrosis. 2. Punctate nonobstructing bilateral renal stones. One or more dose reduction techniques were used (e.g., Automated exposure contr ol, adjustment of the mA and/or kV according to patient size, use of iterative reconstruction technique). Reading Location: [facility]
[2024-10-03 02:35] VITALS: BP 132/66; PULSE 73; RESP 19; O2SAT 99
[2024-10-03] MEDS: Ceftriaxone 1 GM/50 ML BAG IV (02:36)
[2024-10-03 03:18] VITALS: BP 130/70; PULSE 72; RESP 18; TEMP 36.7; O2SAT 97
[2024-10-03] MEDS: Tamsulosin HCl 0.4 MG Capsule PO (03:21)
== END 2024-10-03 03:23 | disposition home or self-care (01) ==
PROVIDERS: Emergency Provider Emergency Medicine; PCP Family Medicine; Visit Provider Emergency Medicine
DX: N13.2 Hydronephrosis with renal and ureteral calculous obstruction (principal); N23 Unspecified renal colic; F41.9 Anxiety disorder, unspecified; F32.A Depression, unspecified; Z79.899 Other long term (current) drug therapy
CPT/HCPCS: 74176; 80048; 81001; 81025; 85025; 87086; 87088; 96365; 99284; A4216; J2405